=== PATIENT | male | born 1985 | race Caucasian/White ===

== ENCOUNTER → 2017-11-05 | Outpatient (CLI) | payer OTHER ==
--- NOTE | 2017-11-05 12:46 | CARD ---
MR#: [id number] Date of Study: 11/05/2017 Ordering Physician: HÉCTOR FOWLER, Referring Physician: HÉCTOR FOWLER Tech: Gretchen Pereira RDCS APPROVED REPORT EXAM: Two-dimensional and M-mode echocardiogram with Doppler and color Doppler. Other Information Quality : Good INDICATION History of Tetrology of Fallot 2D DIMENSIONS RVDd2.3 (2.9-3.5cm)Left Atrium(2D)3.6 (1.6-4.0cm) IVSd0.9 (0.7-1.1cm)Aortic Root(2D)2.7 (2.0-3.7cm) LVDd5.0 (3.9-5.9cm)LVOT Diameter2.1 (1.8-2.4cm) PWd0.8 (0.7-1.1cm)LVDs3.4 (2.5-4.0cm) FS (%) 32.7 %SV72.0 ml LVEF(%)60.9 (>50%) Aortic Valve AoV Peak Darrel.97.2cm/sAoV VTI18.0cm AO Peak GR.3.8mmHgLVOT Peak Darrel.94.9cm/s LVOT VTI 21.02cmAO Mean GR.2mmHg YOUNG (VMAX)3.51qk4WYT (VTI)3.98cm2 Mitral Valve MV E Hetxjbti81.2cm/sMV DECEL YFAN999tz MV A Ovsshctf12.3cm/sE/A Ratio1.9 Tricuspid Valve TR P. Eefiiiyl184bp/sRAP [id number] TR Peak Gr.56zvQrKNJN98rpQt Pulmonary Vein S1 Inlyfznj50.4cm/sD2 Llgyihze55.8cm/s LEFT VENTRICLE The left ventricle is normal size. There is normal left ventricular wall thickness. The left ventricu lar systolic function is normal and the ejection fraction is within normal range. The Ejection Fracti on is 55-60%. There is normal LV segmental wall motion. Septal motion suggestive of prior operative i ntervention The left ventricular diastolic function and filling is normal for age. RIGHT VENTRICLE The right ventricle is mildly dilated. May be due to off axis images. The right ventricular systolic function is normal. ATRIA The left atrium size is normal. The right atrium size is normal. The interatrial septum is intact wit h no evidence for an atrial septal defect or patent foramen ovale as noted on 2-D or Doppler imaging. AORTIC VALVE The aortic valve is not well visualized. Doppler and Color Flow revealed no significant aortic regurg itation. There is no significant aortic valvular stenosis. MITRAL VALVE The mitral valve is normal in structure and function. There is no evidence of mitral valve prolapse. There is no mitral valve stenosis. Doppler and Color-flow revealed trace mitral regurgitation. TRICUSPID VALVE The tricuspid valve is normal in structure and function. Doppler and Color Flow revealed trace tricus pid regurgitation. The PA pressure was estimated at 26 mmHg. There is no tricuspid valve stenosis. PULMONIC VALVE The pulmonic valve is not well visualized. Doppler and Color Flow revealed no pulmonic valvular regur gitation. There is no pulmonic valvular stenosis. GREAT VESSELS The aortic root is normal in size. The ascending aorta is normal in size. The IVC is normal in size a nd collapses >50% with inspiration. PERICARDIAL EFFUSION There is no evidence of significant pericardial effusion. Critical Notification Critical Value: No <Conclusion> The left ventricular systolic function is normal and the ejection fraction is within normal range. Th e Ejection Fraction is 55-60%. There is normal LV segmental wall motion. Septal motion suggestive of prior operative intervention The right ventricle is mildly dilated. May be due to off axis images. The right ventricular systolic function is normal. Pulmonic valve not well visualized. No significant pulmonary HTN. Signed by : Alistair Manzo, Electronically Approved : 11/05/2017 12:45:28
== END | disposition home or self-care (01) ==
LOC: ECHO 08:59
PROVIDERS: ATTEND Internal Medicine Cardiovascular Disease
DX: Q21.3 Tetralogy of Fallot (principal); I08.1 Rheumatic disorders of both mitral and tricuspid valves
CPT/HCPCS: 93306